=== PATIENT | male | born 1975 | race Caucasian/White ===

== ENCOUNTER 2020-11-21 18:01 | Emergency (ER) | payer OTHER ==
[~2020-11-21] VITALS: Ht 177.8 cm; Wt 86.2 kg
== END 2020-11-21 22:49 | disposition home or self-care (01) ==
LOC: ER 18:01
DX: U07.1 COVID-19 (principal)

== ENCOUNTER 2024-09-04 06:12 | Day surgery (SDC) | payer OTHER ==
[2024-09-04] MEDS ORDERED: fentaNYL CITRATE 50 MCG/ML AMPUL IV PUSH ONE (09:45)
[2024-09-04] MEDS ORDERED: MIDAZOLAM HCL 2 MG/2 ML VIAL IV ONE (09:45)
[2024-09-04] MEDS ORDERED: DIPHENHYDRAMINE HCL 50 MG/ML VIAL 1ML IV ONE (09:45)
== END 2024-09-04 11:40 | disposition home or self-care (01) ==
LOC: AMB-ENDOS 06:12
PROVIDERS: ATTEND Colon & Rectal Surgery
DX: D12.5 Benign neoplasm of sigmoid colon (principal); K63.5 Polyp of colon